=== PATIENT | female | born 1975 | race Two or more races ===

== ENCOUNTER → 2022-05-29 | Outpatient (CLI) | payer OTHER ==
[2022-05-29 08:01] LABS: Basophils # (auto) 0.1 10 ^3/uL (0-0.2); Basophils % (auto) 1.2 % (0.0-2.0); Eosinophils # (auto) 0.3 10 ^3/uL (0-0.8); Eosinophils % (auto) 4.8 % (0.0-7.0); Hemoglobin 12.9 g/dL (12.2-16.2); Lymphocytes % (auto) 16.8 % (10.0-50.0); Mean Corpuscular Hemoglobin 27.6 pg (28.0-32.0); Mean Corpuscular Hgb Conc. 33.9 g/dL (32.0-36.0); Mean Corpuscular Volume 81.4 fL (80.0-100.0); Monocytes # (auto) 0.3 10 ^3/uL (0-1.3); Monocytes % (auto) 5.4 % (0.0-12.0); Neutrophils # (auto) 4.1 10 ^3/uL (1.6-8.6); Neutrophils % (auto) 71.8 % (37.0-80.0); Nucleated Red Blood Cells % 0.3 %; Red Blood Cells 4.67 10^6/uL (4.0-5.20); Red Cell Distribution Width 13.3 % (11.8-14.3); White Blood Cell 5.7 10^3/uL (4.4-10.8)
[2022-05-29 08:45] LABS: Albumin 3.5 g/dL (3.4-5.0); Calcium 8.6 mg/dL (8.5-10.1); Potassium 3.7 mmol/L (3.5-5.1)
[2022-05-29 08:50] LABS: BUN/Creatinine Ratio 10.1; Bilirubin, Total 0.6 mg/dL (0.2-1.0); Total Protein 6.8 g/dL (6.4-8.2)
[2022-05-29 08:57] LABS: Urine Bacteria FEW /hpf (None Seen); Urine Blood TRACE /uL (Negative); Urine Mucus FEW (None Seen); Urine Specific Gravity 1.028 (1.001-1.035); Urine WBC 1 /hpf (0 - 5)
== END | disposition home or self-care (01) ==
LOC: LAB 07:40
PROVIDERS: ATTEND Internal Medicine
DX: N39.0 Urinary tract infection, site not specified (principal); K21.9 Gastro-esophageal reflux disease without esophagitis
CPT/HCPCS: 36415; 80053; 80061; 81001; 82150; 83690; 84439; 84443; 85025; 86677

== ENCOUNTER 2023-03-08 07:53 | Emergency (ER) | payer OTHER ==
[~2023-03-08] VITALS: Ht 170.2 cm; Wt 80.3 kg
[2023-03-08 08:57] LABS: Basophils # (auto) 0.1 10 ^3/uL (0-0.2); Basophils % (auto) 1.1 % (0.0-2.0); Eosinophils # (auto) 0.2 10 ^3/uL (0-0.8); Hematocrit 39.8 % (36.0-46.0); Hemoglobin 13.7 g/dL (12.2-16.2); Lymphocytes # (auto) 1.4 10 ^3/uL (0.4-5.4); Mean Corpuscular Hemoglobin 28.1 pg (28.0-32.0); Mean Corpuscular Hgb Conc. 34.3 g/dL (32.0-36.0); Monocytes # (auto) 0.4 10 ^3/uL (0-1.3); Monocytes % (auto) 7.2 % (0.0-12.0); Neutrophils # (auto) 3.6 10 ^3/uL (1.6-8.6); Neutrophils % (auto) 62.7 % (37.0-80.0); Nucleated Red Blood Cells % 0.3 %; Red Blood Cells 4.86 10^6/uL (4.0-5.20); White Blood Cell 5.8 10^3/uL (4.4-10.8)
[2023-03-08 09:01] LABS: Albumin 3.7 g/dL (3.4-5.0); Calcium 8.1 mg/dL (8.5-10.1); Potassium 3.9 mmol/L (3.5-5.1)
[2023-03-08 09:05] LABS: BUN/Creatinine Ratio 13.9 (10.0-20.0); Bilirubin, Total 0.6 mg/dL (0.2-1.0); Total Protein 6.7 g/dL (6.4-8.2)
[2023-03-08 09:20] LABS: INR 0.94 (0.9-1.15); Partial Thromboplastin Time 30.6 sec (24.6-33.4)
[2023-03-08 13:03] VITALS: BP 104/66
== END 2023-03-08 13:04 | disposition home or self-care (01) ==
LOC: ER 07:53
DX: N93.8 Other specified abnormal uterine and vaginal bleeding (principal); R10.2 Pelvic and perineal pain
CPT/HCPCS: 36415; 76856; 80053; 81025; 84702; 85025; 85610; 85730; 86850; 86900; 86901

== ENCOUNTER 2025-07-09 06:09 | Outpatient (CLI) | payer OTHER ==
[2025-07-09 06:50] LABS: Hematocrit 43.4 % (36.0-46.0); Hemoglobin 15.0 g/dL (12.2-16.2); Mean Corpuscular Hemoglobin 29.2 pg (28.0-32.0); Mean Corpuscular Volume 84.2 fL (80.0-100.0); Nucleated Red Blood Cells % 0.1 %
[2025-07-09 06:55] LABS: Urine Protein, UAD Negative (Negative)
[2025-07-09 07:27] LABS: Free T4 (Free Thyroxine) 1.17 ng/dL (0.89-1.76)
[2025-07-09 07:28] LABS: Follicle Stimulating Hormone 24.36 IU/L (SEE BELOW)
[2025-07-09 07:29] LABS: Ferritin 18.7 ng/mL (10-291)
[2025-07-09 07:35] LABS: Alanine Aminotransferase 13 U/L (7-40); Anion Gap 11 (5-15); BUN/Creatinine Ratio 14.3 (10.0-20.0); Blood Urea Nitrogen 11 mg/dL (9-23); Calcium 9.1 mg/dL (8.7-10.4); Carbon Dioxide 27 mmol/L (20-31); Chloride 106 mmol/L (98-107); Glucose 83 mg/dL (74-106); Potassium 4.0 mmol/L (3.5-5.1); Sodium 144 mmol/L (136-145); Total Protein 7.1 g/dL (5.7-8.2); Triglycerides 110 mg/dL (< 150)
[2025-07-09 07:36] LABS: Albumin 4.5 g/dL (3.2-4.8)
[2025-07-09 07:37] LABS: Bilirubin, Total 0.8 mg/dL (0.2-1.0)
[2025-07-09 07:41] LABS: Alkaline Phosphatase 42 U/L (46-116); Cholesterol 220 mg/dL (< 200); HDL Cholesterol 62 mg/dL (40-59)
[2025-07-09 11:14] LABS: Uric Acid 5.1 mg/dL (3.1-7.8)
[2025-07-10 08:07] LABS: Anti-Nuclear Antibody Direct Negative (Negative)
== END 2025-07-09 17:00 | disposition home or self-care (01) ==
LOC: LAB 06:09
PROVIDERS: ATTEND Obstetrics & Gynecology
DX: E79.0 Hyperuricemia without signs of inflammatory arthritis and tophaceous disease (principal); N83.209 Unspecified ovarian cyst, unspecified side; N95.1 Menopausal and female climacteric states; D64.9 Anemia, unspecified; M06.9 Rheumatoid arthritis, unspecified; M54.50 Low back pain, unspecified; M25.50 Pain in unspecified joint; Z00.00 Encounter for general adult medical examination without abnormal findings; Z98.890 Other specified postprocedural states
CPT/HCPCS: 36415; 80053; 80061; 81001; 82670; 82728; 83001; 83002; 84403; 84439; 84443; 84550; 85025; 86038; 86304; 86431; 87086